=== PATIENT | male | born 1945 | race Hispanic/Latino ===

== ENCOUNTER 2016-10-30 06:11 | Inpatient (IN) | payer MEDICARE ==
[2016-10-30] MEDS ORDERED: ZOFRAN ONE ×2 (06:43→17:02)
[2016-10-30] MEDS ORDERED: NACL 0.9% 1000 ML 1,000 ML ONE ×4 (06:43→19:35)
[2016-10-30 06:53] LABS: Basophils % (Auto) 0.2 % (0.0-1.8); Eosinophils % (Auto) 5.7 % (0.0-4.3); Hematocrit 36.8 % (35.5-45.6); Hemoglobin 13.1 gm/dl (11.8-15.2); Mean Corpuscular HGB Conc 36 % (32-34); Mean Corpuscular Hemoglobin 32 pg (28-32); Mean Corpuscular Volume 91 fl (84-94); Platelet Count 212 K/mm3 (140-440); Red Blood Count 4.04 M/mm3 (3.65-5.03); Red Cell Distribution Width 13.8 % (13.2-15.2); White Blood Count 6.3 K/mm3 (4.5-11.0)
[2016-10-30] MEDS ORDERED: ZOFRAN IV ONE (06:56)
[2016-10-30] MEDS ORDERED: NACL 0.9% 1000 ML 1,000 ML IV ONE (06:56)
[2016-10-30 07:09] LABS: Albumin 4.4 g/dL (3.9-5); Albumin/Globulin Ratio 1.9 %; Alkaline Phosphatase 73 units/L (35-129); Anion Gap 19 mmol/L; BUN/Creatinine Ratio 15.55; Blood Urea Nitrogen 14 mg/dL (9-20); Calcium 9.5 mg/dL (8.4-10.2); Carbon Dioxide 26 mmol/L (22-30); Chloride 103.2 mmol/L (98-107); Glucose 130 mg/dL (75-100); Lipase 57 units/L (13-60); Potassium 4.2 mmol/L (3.6-5.0); Sodium 144 mmol/L (137-145); Total Protein 6.7 g/dL (6.3-8.2)
[2016-10-30] MEDS ORDERED: MORPHINE IV ONE ×3 (07:18→15:32)
[2016-10-30] MEDS ORDERED: PEPCID IV ONE (07:21)
--- NOTE | 2016-10-30 07:25 | Emergency Department Report ---
ED Abdominal Pain HPI - General Chief Complaint: Abdominal Pain Stated Complaint: CP Time Seen by Provider: 10/30/16 07:18 Source: patient Mode of arrival: Ambulatory Limitations: No Limitations - History of Present Illness Initial Comments: 71-year-old male here with complaint of sudden onset of abdominal pain and nausea that started at approximately 4:30 AM this morning. Patient states he was asleep and then developed pain in the center of his upper abdomen. He's had similar symptoms in the past approximately 10 months ago and this was related to reflux. He states this feels different. He has no associated shortness of breath. He has had some nausea and he has vomited 1. He has no fevers or chills. He still has his gallbladder. He did have an an appendectomy in the past. MD Complaint: abdominal pain -: Sudden Location: epigastric Radiation: none Migration to: no migration Severity: mild Severity scale (0 -10): 8 Quality: cramping Improves With: nothing Worsens With: nothing Associated Symptoms: nausea, vomiting - Related Data Home Medications Medication Instructions Recorded Confirmed Last Taken LORazepam [Ativan] 1 mg PO TID PRN 08/06/16 10/30/16 10/30/16 Omeprazole 40 mg PO DAILY 08/06/16 10/30/16 10/29/16 Sertraline [Zoloft] 150 mg PO QDAY 08/06/16 10/30/16 10/29/16 Previous Rx's Medication Instructions Recorded Last Taken Type oxyCODONE /ACETAMINOPHEN [Percocet 1 tab PO Q6H PRN #20 tablet 08/07/16 Rx 5/325 mg] Allergies Allergy/AdvReac Type Severity Reaction Status Date / Time Sulfa (Sulfonamide AdvReac Headache Verified 08/06/16 02:18 Antibiotics) ED Review of Systems ROS: Stated complaint: CP Other details as noted in HPI Comment: All other systems reviewed and negative Constitutional: denies: chills, fever Eyes: denies: eye pain, eye discharge, vision change ENT: denies: ear pain, throat pain Respiratory: denies: cough, shortness of breath, wheezing Cardiovascular: denies: chest pain, palpitations Endocrine: no symptoms reported Gastrointestinal: abdominal pain, nausea, vomiting. denies: diarrhea Genitourinary: denies: urgency, dysuria Musculoskeletal: denies: back pain, joint swelling, arthralgia Skin: denies: rash, lesions Neurological: denies: headache, weakness, paresthesias Psychiatric: denies: anxiety, depression Hematological/Lymphatic: denies: easy bleeding, easy bruising ED Past Medical Hx - Past Medical History Previous Medical History?: Yes Hx Hypertension: No Hx Congestive Heart Failure: No Hx Diabetes: No Hx Psychiatric Treatment: Yes (Anxiety, Panic Attacks) Hx Asthma: Yes Hx COPD: No Additional medical history: GERD - Surgical History Past Surgical History?: Yes Hx Appendectomy: Yes Additional Surgical History: T&A. Hernia. Kidney Stones - Family History Family history: no significant - Social History Smoking Status: Never Smoker Substance Use Type: None - Medications Home Medications: Home Medications Medication Instructions Recorded Confirmed Last Taken Type LORazepam [Ativan] 1 mg PO TID PRN 08/06/16 10/30/16 10/30/16 History Omeprazole 40 mg PO DAILY 08/06/16 10/30/16 10/29/16 History Sertraline [Zoloft] 150 mg PO QDAY 08/06/16 10/30/16 10/29/16 History oxyCODONE /ACETAMINOPHEN [Percocet 1 tab PO Q6H PRN #20 tablet 08/07/1610/30/16 Rx 5/325 mg] ED Physical Exam - General Limitations: No Limitations General appearance: alert, in no apparent distress - Head Head exam: Present: atraumatic, normocephalic - Eye Eye exam: Present: normal appearance. Absent: scleral icterus, conjunctival injection - ENT ENT exam: Present: mucous membranes moist - Neck Neck exam: Present: normal inspection - Respiratory Respiratory exam: Present: normal lung sounds bilaterally. Absent: respiratory distress, wheezes, rales - Cardiovascular Cardiovascular Exam: Present: regular rate, normal rhythm, normal heart sounds. Absent: systolic murmur, diastolic murmur, rubs, gallop - GI/Abdominal GI/Abdominal exam: Present: soft, tenderness (mild epigastric discomfort), normal bowel sounds. Absent: guarding, rebound, rigid - Rectal Rectal exam: Present: deferred - Extremities Exam Extremities exam: Present: normal inspection - Back Exam Back exam: Present: normal inspection - Neurological Exam Neurological exam: Present: alert, oriented X3 - Psychiatric Psychiatric exam: Present: normal affect, normal mood - Skin Skin exam: Present: warm, dry, intact, normal color. Absent: rash ED Course Vital Signs 10/30/16 10/30/16 10/30/16 06:20 06:45 07:36 Temperature 97.9 F 98.5 F Pulse Rate 54 L 58 L Respiratory 18 16 16 Rate Blood Pressure 150/68 Blood Pressure 180/79 [Left] O2 Sat by Pulse 98 98 Oximetry 10/30/16 10/30/16 10/30/16 07:46 08:06 09:44 Temperature Pulse Rate 64 Respiratory 16 16 16 Rate Blood Pressure Blood Pressure 169/74 [Left] O2 Sat by Pulse 100 Oximetry ED Medical Decision Making - Lab Data Result diagrams: 10/30/16 06:33 10/30/16 06:33 Laboratory Results - last 24 hr 10/30/16 10/30/16 06:33 06:33 WBC 6.3 RBC 4.04 Hgb 13.1 Hct 36.8 MCV 91 MCH 32 MCHC 36 H RDW 13.8 Plt Count 212 Lymph % (Auto) 27.0 [place] % (Auto) 8.2 H Eos % (Auto) 5.7 H Baso % (Auto) 0.2 Lymph # 1.7 [place] # 0.5 Eos # 0.4 Baso # 0.0 Seg Neutrophils % 58.9 Seg Neutrophils # 3.7 Sodium 144 Potassium 4.2 Chloride 103.2 Carbon Dioxide 26 Anion Gap 19 BUN 14 Creatinine 0.9 Estimated GFR > 60 BUN/Creatinine Ratio 15.55 Glucose 130 H Calcium 9.5 Total Bilirubin 0.20 Alkaline Phosphatase 73 Troponin T < 0.010 Total Protein 6.7 Albumin 4.4 Albumin/Globulin Ratio 1.9 Lipase 57 - EKG Data 10/30/16 07:25 Sinus bradycardia rate of 56 normal axis normal intervals no ST-T wave changes - Medical Decision Making 71-year-old male here with complaint of abdominal pain. Pain started suddenly at around 4:30 AM this morning. He's had similar pain in the past though he believes this feels slightly different. Clinical exam he has some mild tenderness in his epigastrium but otherwise unremarkable exam. Plan to treat with IV morphine and IV antiemetics IV fluids. We'll rule out cardiac cause although I do not think this is likely cardiac. Plan ultrasound right upper quadrant. Ultrasound showed gallstones with trace pericholecystic fluid. On reassessment patient was not improved. Plan CT abdomen. CT abdomen shows essentially the same findings. Discussed case with surgeon delivery consultant who recommends admission to medicine with HIDA scan. Dr. Mcdonald will see the patient in consult. Portions of this chart were dictated with dictation software. There may be dictation errors contained within this note. Critical care attestation.: If time is entered above; I have spent that time in minutes in the direct care of this critically ill patient, excluding procedure time. ED Disposition Clinical Impression: Abdominal pain Disposition: [id number] OP ADMIT IP TO THIS HOSP Is pt being admited?: Yes Condition: Stable Referrals: PRIMARY CARE, [Primary Care Provider] - 3-5 Days
[2016-10-30 07:37] LABS: Alanine Aminotransferase < 5 units/L (7-56)
--- NOTE | 2016-10-30 08:40 | Ultrasound Report ---
ULTRASOUND ABDOMEN LIMITED INDICATION: Abdominal RUQ pain. COMPARISON: None similar. FINDINGS: Right upper quadrant sonography suggests slight diffuse hepatic echogenic coarsening with grossly preserved contours. No definite focal suspicious lesions or biliary dilatation, to the extent assessed. Right hepatic lobe approximately 18 cm in midclavicular length. Gallbladder approximately 9.3 cm in length and demonstrates few small echogenic shadowing gallstones towards the fundus, individually measuring to the order of 5 mm. Subtle pericholecystic lucency hinted on some images 32-41, questionable for minimal pericholecystic fluid or fatty sparing. Gallbladder wall thickness is 1.7 mm. Negative sonographic Cramer's sign. Common bile duct is 5.7 mm. No ascites. Imaged pancreas grossly within normal limits, though tail obscured due to bowel gas. Unremarkable IVC. Nonaneurysmal abdominal aorta. Nonhydronephrotic 10.4 x 4.1 x 5 cm right kidney with cortical thickness of 1 cm. CONCLUSION: Cholelithiasis with minimal nonspecific pericholecystic lucency questioned, as described in this patient with subtle fatty, mildly enlarged liver also possible, as described. Please correlate. I phoned the above results to Dr. Lorenzo in the ER, 8:30 AM, 10/30/2016. Thank you for the opportunity to participate in this patient's care.
[2016-10-30] MEDS ORDERED: NACL ONE (09:37)
--- NOTE | 2016-10-30 10:41 | Cat Scan Report ---
CT ABDOMEN AND PELVIS WITH CONTRAST INDICATION: Abdominal pain. COMPARISON: RUQ ultrasound from earlier today. FINDINGS: Abdomen and pelvis CT performed following intravenous administration of 100 cc of Omnipaque 300. LUNG BASES: Slight cardiomegaly. Bibasilar dependent atelectasis. Slight lingular scarring. Nonspecific distal esophageal wall prominence/thickening, not excluded for gastroesophageal reflux and/or hiatal hernia, amongst others. Right hemidiaphragm slightly elevated. ABDOMEN: Subtle diffuse fatty hepatic infiltration suspected visually. Right hepatic lobe approximately 19 cm in mid clavicular length. CBD approximately 5 mm at the jose luis hepatis. No radiopaque gallstones identified on CT. Minimal fluid near the gallbladder fundus questioned as on axial images 90-100, series 2. No significant pericholecystic fat stranding however. Pancreas, adrenals, nonaneurysmal abdominal aorta, IVC and kidneys within normal limits. Ingested debris within the stomach. Pylorus suboptimally distended with nonspecific exaggerated wall thickness, axial images 95-117. Remainder nonopacified GI tract nonobstructive. Usual colonic stool. No ascites or size significant adenopathy. PELVIS: Few distal descending colon and proximal sigmoid diverticuli without acute complication. Prominent prostate may be age-appropriate, slightly indenting the bladder base and may also be correlated for clinically and with PSA. Small prostatic calcifications. No free fluid or significant adenopathy. Prior right inguinal hernia repair. Small, approximately 2 cm fat containing left inguinal hernia. Multilevel imaged spinal degenerative changes as spurring, lower thoracic spine Schmorl's nodes, lower lumbar facet arthropathy and demineralized bones. CONCLUSION: 1. Sonographically identified gallstones not visible on CT. Otherwise similar appearance of subtle fatty prominent/slightly enlarged liver and questionable minimal pericholecystic fluid, as described. HIDA scan may help evaluate gallbladder function, if so warranted. 2. Various other findings, including distal esophageal prominence, exaggerated pyloric wall prominence/thickening, diverticulosis, fat-containing left inguinal hernia and prior right inguinal hernia repair, amongst others, as above. Thank you for the opportunity to participate in this patient's care.
--- NOTE | 2016-10-30 10:47 | Admit Criteria Form ---
Admission Criteria Documentation: ABDOMINAL PAIN Clinical Indications for Admission to Inpatient Care ( moapa/check or initial the applicable condition/criteria): Admission is indicated for ANY ONE of the following (1)(2)(3)(4)(5)(6): [ ]I. Surgery needed that cannot be performed on ambulatory basis [ ]II. Peritoneal signs present (eg, rebound tenderness, rigidity) [ ]III. Evaluation requires patient to not eat or drink for extended period ( eg, more than 24 hours). [x]IV. Inpatient admission required[B] rather than observation care (see Abdominal Pain: Observation Care guideline as appropriate) because of ANY ONE of the following(7)(8)(9): [ ] a) Hemodynamic instability [x]b) Severe pain requiring acute inpatient management [ ]c) Identification of etiology or finding that requires inpatient care (eg, aortic dissection, free air,bowel ischemia)(10) [ ]d) Absent bowel sounds with complete ileus (11) [ ]e) Signs of intestinal obstruction[C] [ ]f) Suspected toxic megacolon [ ]g) Severe electrolyte abnormalities requiring inpatient care [ ]h) High fever or infection requiring inpatient admission as indicated by ANY ONE of the following (12)(13): [ ]i) Appropriate outpatient or observation care antimicrobial treatment unavailable, not effective, or not feasible [ ]ii) Documented bacteremia [ ]iii) Temperature greater than 104.9 degrees F (40.5 degrees C) (oral) [ ]iv) Temperature greater than 103.1 degrees F (39.5 degrees C) ( oral) or less than 96.8 degrees F (36 degrees C) (rectal) that does not respond to all emergency treatment measures [ ]i) IV fluid required rather than oral rehydration to replace significant ongoing (eg, for greater than 24 hours) losses (greater than 3 L/m2 per day)(14)(15) [ ]j) Percutaneous or open drainage (eg, abscess, biliary tract) procedures [ ]k) Parenteral nutrition regimen that must be implemented on inpatient basis [ ]l) Other condition, treatment, or monitoring requiring inpatient admission Extended stay beyond goal length of stay may be needed for (1)(3)(4)(10)(16): [ ]a) Surgery (e.g., colectomy, revascularization procedure) [ ]b) Persistent abdominal pain with suspected intra-abdominal process [ ]c) Diagnosed condition requiring continued stay (e.g., pancreatitis, complicated diverticulitis) The original [facility] [employer] content created by [facility] has been revised. The portions of the content which have been revised are identified through the use of italic text or in bold, and [facility] has neither reviewed nor approved the modified material.All other unmodified content is copyright [facility]. Please see references footnoted in the original [facility] edition 2017
--- NOTE | 2016-10-30 11:03 | History and Physical Report ---
History of Present Illness Date of examination: 10/30/16 Date of admission: 10/30/2016 Chief complaint: Abdominal pain History of present illness: Patient is a [age]-year-old male with a past medical history of sleep apnea depression and GERD, presents to the hospital with sharp abdominal and epigastric pain that started at 4:00 this morning and woke him suddenly from sleep. He localizes the pain to his epigastric area and states that it does not radiates. The pain is constant, 8 out of 10 in severity. He recalls a past history of similar pain, back in July where is present in the right upper quadrant, however it did resolve and he was discharged. He states he had 1 episode of nonbilious/nonbloody emesis upon arrival to the emergency room. He denies fevers or chills. He did have an an appendectomy in the past. Past History Past Medical History: GERD, other (sleep apena ) Past Surgical History: appendectomy Social history: lives with family. denies: smoking, alcohol abuse Family history: CAD, hypertension Medications and Allergies Allergies Allergy/AdvReac Type Severity Reaction Status Date / Time Sulfa (Sulfonamide AdvReac Headache Verified 08/06/16 02:18 Antibiotics) Home Medications Medication Instructions Recorded Confirmed Last Taken Type LORazepam [Ativan] 1 mg PO TID PRN 08/06/16 10/30/16 10/30/16 History Omeprazole 40 mg PO DAILY 08/06/16 10/30/16 10/29/16 History Sertraline [Zoloft] 150 mg PO QDAY 08/06/16 10/30/16 10/29/16 History oxyCODONE /ACETAMINOPHEN [Percocet 1 tab PO Q6H PRN #20 tablet 08/07/1610/30/16 Rx 5/325 mg] Review of Systems Constitutional: no weight loss, no weight gain, no fever Ears, nose, mouth and throat: no ear discharge, no tinnitis, no decreased hearing, no nasal congestion Cardiovascular: no orthopnea, no palpitations, no rapid/irregular heart beat, no edema Respiratory: no cough with sputum, no excessive sputum, no hemoptysis, no shortness of breath Gastrointestinal: no vomiting, no diarrhea, no constipation, no change in bowel habits Genitourinary Male: no flank pain, no discharge, no urinary frequency Rectal: no pain, no incontinence, no bleeding Musculoskeletal: no neck stiffness, no neck pain, no shooting arm pain Integumentary: no rash, no pruritis, no redness, no sores, no wounds, no jaundice Neurological: no paralysis, no weakness, no parathesias, no numbness, no tingling Psychiatric: no anxiety, no memory loss, no change in sleep habits, no sleep disturbances Endocrine: no cold intolerance, no heat intolerance, no polyphagia, no excessive thirst Hematologic/Lymphatic: no easy bruising, no easy bleeding Allergic/Immunologic: no urticaria, no allergic rhinitis Exam - Constitutional Vitals: Temp Pulse Resp BP Pulse Ox 98.5 F 64 16 169/74 100 10/30/16 06:45 10/30/16 07:46 10/30/16 09:44 10/30/16 07:46 10/30/16 07:46 General appearance: Present: no acute distress - EENT Eyes: Present: PERRL ENT: hearing intact - Neck Neck: Present: supple - Respiratory Respiratory effort: normal Respiratory: bilateral: CTA - Cardiovascular Heart rate: 56 Rhythm: regular Heart Sounds: Present: S1 & S2 - Extremities Extremities: no ischemia Peripheral Pulses: within normal limits - Abdominal General gastrointestinal: Present: soft, non-tender Male genitourinary: Present: deferred - Rectal Rectal Exam: deferred - Integumentary Integumentary: Present: clear, warm, dry - Musculoskeletal Musculoskeletal: strength equal bilaterally - Psychiatric Psychiatric: appropriate mood/affect - Neurologic Neurologic: CNII-XII intact - Allied Health Allied health notes reviewed: nursing Results - Labs CBC & Chem 7: 10/30/16 06:33 10/30/16 06:33 Labs: Laboratory Last Values WBC 6.3 K/mm3 (4.5-11.0) 10/30/16 06:33 RBC 4.04 M/mm3 (3.65-5.03) 10/30/16 06:33 Hgb 13.1 gm/dl (11.8-15.2) 10/30/16 06:33 Hct 36.8 % (35.5-45.6) 10/30/16 06:33 MCV 91 fl (84-94) 10/30/16 06:33 MCH 32 pg (28-32) 10/30/16 06:33 MCHC 36 % (32-34) H 10/30/16 06:33 RDW 13.8 % (13.2-15.2) 10/30/16 06:33 Plt Count 212 K/mm3 (140-440) 10/30/16 06:33 Lymph % (Auto) 27.0 % (13.4-35.0) 10/30/16 06:33 [place] % (Auto) 8.2 % (0.0-7.3) H 10/30/16 06:33 Eos % (Auto) 5.7 % (0.0-4.3) H 10/30/16 06:33 Baso % (Auto) 0.2 % (0.0-1.8) 10/30/16 06:33 Lymph # 1.7 K/mm3 (1.2-5.4) 10/30/16 06:33 [place] # 0.5 K/mm3 (0.0-0.8) 10/30/16 06:33 Eos # 0.4 K/mm3 (0.0-0.4) 10/30/16 06:33 Baso # 0.0 K/mm3 (0.0-0.1) 10/30/16 06:33 Seg Neutrophils % 58.9 % (40.0-70.0) 10/30/16 06:33 Seg Neutrophils # 3.7 K/mm3 (1.8-7.7) 10/30/16 06:33 Sodium 144 mmol/L (137-145) 10/30/16 06:33 Potassium 4.2 mmol/L (3.6-5.0) 10/30/16 06:33 Chloride 103.2 mmol/L (98-107) 10/30/16 06:33 Carbon Dioxide 26 mmol/L (22-30) 10/30/16 06:33 Anion Gap 19 mmol/L 10/30/16 06:33 BUN 14 mg/dL (9-20) 10/30/16 06:33 Creatinine 0.9 mg/dL (0.8-1.5) 10/30/16 06:33 Estimated GFR > 60 ml/min 10/30/16 06:33 BUN/Creatinine Ratio 15.55 % 10/30/16 06:33 Glucose 130 mg/dL (75-100) H 10/30/16 06:33 Calcium 9.5 mg/dL (8.4-10.2) 10/30/16 06:33 Total Bilirubin 0.20 mg/dL (0.1-1.2) 10/30/16 06:33 AST < 5 units/L (5-40) L 10/30/16 06:33 ALT < 5 units/L (7-56) L 10/30/16 06:33 Alkaline Phosphatase 73 units/L (35-129) 10/30/16 06:33 Troponin T < 0.010 ng/mL (0.00-0.029) 10/30/16 09:24 Total Protein 6.7 g/dL (6.3-8.2) 10/30/16 06:33 Albumin 4.4 g/dL (3.9-5) 10/30/16 06:33 Albumin/Globulin Ratio 1.9 % 10/30/16 06:33 Lipase 57 units/L (13-60) 10/30/16 06:33 - Imaging and Cardiology CT scan - abdomen: image reviewed (Cholelithiasis with minimal nonspecific pericholecystic ) Assessment and Plan Assessment and plan: Acute Cholelithiasis Ct of the Abdomen/Pelvic revealed Cholelithiasis with minimal nonspecific pericholecystic Nothing by mouth Initiated empiric treatment on antibiotic IV Zosyn HIDA scan pending Surgery consulted Patient might go to surgery in the AM Supportive care GERD Started on IV protonix 40mg BID DVT prophylaxis Lovenox Advance Directives: Yes VTE prophylaxis?: Chemical Contraindication Mechanical VTE Prophylaxis: Treatment Not Indicated Plan of care discussed with patient/family: Yes
[2016-10-30] MEDS ORDERED: TYLENOL PO PRN (11:05)
[2016-10-30] MEDS ORDERED: DULCOLAX PR PRN (11:05)
--- NOTE | 2016-10-30 11:39 | Consultation ---
History of Present Illness Consult date: 10/30/16 Reason for consult: abdominal pain - History of present illness History of present illness: 71-year-old male with a history of sleep apnea, GERD, presents to the hospital with acute onset sharp epigastric pain that started at 4:00 this morning and woke him suddenly from sleep. He states the pain does not radiate and remains in the epigastric area. The pain is constant, an 8 out of 10 in severity. He has had pain in his abdomen before, most recently back in July where is present in the right upper quadrant, however it did resolve and he was discharged. He states he had 1 episode of nonbilious/nonbloody emesis upon arrival to the emergency room. He denies sick contacts. He states the pain is not associated with food. He denies chest pain, shortness of breath, fevers, chills, constipation/diarrhea. His last colonoscopy was 5 years ago and showed diverticulosis. He did have a upper endoscopy in which was normal. Past History Past Medical History: GERD, other (sleep apnea, anxiety) Past Surgical History: appendectomy, Other (right inguinal hernia repair, tonsillectomy) Social history: no significant social history. denies: smoking, alcohol abuse Family history: other (GERD, PUD, diverticulosis) Medications and Allergies Allergies Allergy/AdvReac Type Severity Reaction Status Date / Time Sulfa (Sulfonamide AdvReac Headache Verified 08/06/16 02:18 Antibiotics) Home Medications Medication Instructions Recorded Confirmed Last Taken Type LORazepam [Ativan] 1 mg PO TID PRN 08/06/16 10/30/16 10/30/16 History Omeprazole 40 mg PO DAILY 08/06/16 10/30/16 10/29/16 History Sertraline [Zoloft] 150 mg PO QDAY 08/06/16 10/30/16 10/29/16 History oxyCODONE /ACETAMINOPHEN [Percocet 1 tab PO Q6H PRN #20 tablet 08/07/1610/30/16 Rx 5/325 mg] Active Meds: Active Medications Acetaminophen (Tylenol) 650 mg PO Q4H PRN PRN Reason: Pain MILD(1-3)/Fever >100.5/SINGH Bisacodyl (Dulcolax) 10 mg AK QDAY PRN PRN Reason: Constipation unrelieved by MOM Dextrose/Sodium Chloride (D5ns) 1,000 mls @ 75 mls/hr IV DIRECT YANET Piperacillin Sod/Tazobactam Sod (Zosyn/Ns 3.375gm/50ml) 3.375 gm in 50 mls @ 100 mls/hr IV Q8HR YANET PRN Reason: Protocol Miscellaneous Medication (Omeprazole [Omeprazole]) 40 mg PO DAILY YANET Pantoprazole Sodium (Protonix) 40 mg IV DAILY YANET Sertraline HCl (Zoloft) 150 mg PO QDAY YANET Review of Systems All systems: negative (see H&P) Exam Vital Signs Temp Pulse Resp BP Pulse Ox 97.9 F 54 L 18 150/68 98 10/30/16 06:20 10/30/16 06:20 10/30/16 06:20 10/30/16 06:20 10/30/16 06:20 Narrative exam: General: Awake alert and oriented 3 in no apparent distress CV: S1, S2 positive Respiratory: No audible wheezes Abdomen: Soft, non-distended, positive tenderness to palpation in the right upper quadrant. No rebound, rigidity, guarding. Well-healed surgical scar in right lower quadrant. Extremities: No clubbing cyanosis or edema Results - Labs 10/30/16 06:33 10/30/16 06:33 Abnormal lab results 10/30/16 10/30/16 Range/Units 06:33 06:33 MCHC 36 H (32-34) % Mcnairy % (Auto) 8.2 H (0.0-7.3) % Eos % (Auto) 5.7 H (0.0-4.3) % Glucose 130 H (75-100) mg/dL AST < 5 L (5-40) units/L ALT < 5 L (7-56) units/L Diabetes panel 10/30/16 Range/Units 06:33 Sodium 144 (137-145) mmol/L Potassium 4.2 (3.6-5.0) mmol/L Chloride 103.2 (98-107) mmol/L Carbon Dioxide 26 (22-30) mmol/L BUN 14 (9-20) mg/dL Creatinine 0.9 (0.8-1.5) mg/dL Glucose 130 H (75-100) mg/dL Calcium 9.5 (8.4-10.2) mg/dL AST < 5 L (5-40) units/L ALT < 5 L (7-56) units/L Alkaline Phosphatase 73 (35-129) units/L Total Protein 6.7 (6.3-8.2) g/dL Albumin 4.4 (3.9-5) g/dL Calcium panel 10/30/16 Range/Units 06:33 Calcium 9.5 (8.4-10.2) mg/dL Albumin 4.4 (3.9-5) g/dL Pituitary panel 10/30/16 Range/Units 06:33 Sodium 144 (137-145) mmol/L Potassium 4.2 (3.6-5.0) mmol/L Chloride 103.2 (98-107) mmol/L Carbon Dioxide 26 (22-30) mmol/L BUN 14 (9-20) mg/dL Creatinine 0.9 (0.8-1.5) mg/dL Glucose 130 H (75-100) mg/dL Calcium 9.5 (8.4-10.2) mg/dL Adrenal panel 10/30/16 Range/Units 06:33 Sodium 144 (137-145) mmol/L Potassium 4.2 (3.6-5.0) mmol/L Chloride 103.2 (98-107) mmol/L Carbon Dioxide 26 (22-30) mmol/L BUN 14 (9-20) mg/dL Creatinine 0.9 (0.8-1.5) mg/dL Glucose 130 H (75-100) mg/dL Calcium 9.5 (8.4-10.2) mg/dL Total Bilirubin 0.20 (0.1-1.2) mg/dL AST < 5 L (5-40) units/L ALT < 5 L (7-56) units/L Alkaline Phosphatase 73 (35-129) units/L Total Protein 6.7 (6.3-8.2) g/dL Albumin 4.4 (3.9-5) g/dL - Imaging Chest x-ray: pending CT scan - abdomen: report reviewed, image reviewed CT scan - pelvis: report reviewed, image reviewed US - abdomen: report reviewed, image reviewed Assessment and Plan 71-year-old male with 1. abdominal pain, r/o symptomatic cholelithiasis 2. hx sleep apnea 3. hx GERD Plan: - Admit to hospitalist service - CT A/P and U/S abd reviewed - cholelithiasis without signs of cholecystitis. - keep NPO - continue IVF - pain control - HIDA scan pending - further recommendations pending HIDA results and clinical course - d/w Dr. Lorenzo in ER - d/w Patient who understands plan
[2016-10-30] MEDS ORDERED: D5NS 1,000 ML IV SCH (12:00)
--- NOTE | 2016-10-30 12:19 | XRay Report ---
PORTABLE CHEST: Apnea. An AP portable view of the chest demonstrates a normal cardiac contour considering the limits of this technique. The lungs are clear with no evidence of infiltrate, fluid or failure. IMPRESSION: Normal portable chest.
--- NOTE | 2016-10-30 14:21 | Nuclear Medicine Report ---
HIDA INDICATION: Abdominal pain, cholelithiasis. COMPARISON: Abdominal imaging from earlier today. FINDINGS: Dynamic right upper quadrant imaging performed in the anterior projection over 60 minutes following uneventful intravenous administration of 5 mCi of Technetium 99m Choletec. Prompt and homogenous hepatic radiotracer uptake with subsequent washout seen with bowel activity seen reliably at 30 minutes. However, no gallbladder visualized on imaging carried out to 2 hours, then terminated due to hepatic washout. Prominent/slightly enlarged liver. CONCLUSION: Gallbladder nonvisualization that may represent obstructed cystic duct or cholecystitis in an appropriate setting, amongst others. Please also correlate clinically. Thank you for the opportunity to participate in this patient's care.
[2016-10-30] MEDS ORDERED: MARCAINE-EPI/PF 0.5%-1:200,000 INFILTRATI ONE (15:57)
[2016-10-30] MEDS ORDERED: XYLOCAINE 1% 20 mL ONE (15:57)
[2016-10-30] MEDS ORDERED: ZEMURON IV ONE (15:58)
[2016-10-30] MEDS ORDERED: DILAUDID ONE (15:59)
[2016-10-30] MEDS ORDERED: XYLOCAINE MPF 2% ONE (15:59)
[2016-10-30] MEDS ORDERED: DIPRIVAN 10 MG/ML IV ONE (15:59)
--- NOTE | 2016-10-30 16:28 | Anesthesia Consultation ---
Anesthesia Consult and Med Hx - Airway Anesthetic Teeth Evaluation: Good, Crowns (one crown back left lower (19) loose) - Pulmonary Exam CTA: Yes - Cardiac Exam Cardiac Exam: RRR - Pre-Operative Health Status ASA Pre-Surgery Classification: ASA2 Proposed Anesthetic Plan: General (no previous anesthesia problems;has had appy , tonsillectiomy,right iguinal hernia repair, and kidney stones) - Pulmonary Hx Asthma: Yes COPD: No Hx Pneumonia: No - Cardiovascular System Hx Hypertension: Yes - Central Nervous System Hx Psychiatric Problems: Yes (panic attacks, anxiety) - Gastrointestinal Hx Gastroesophageal Reflux Disease: Yes - Endocrine Hx End Stage Renal Disease: No
--- NOTE | 2016-10-30 16:29 | Anesthesia Day of Surgery ---
Anesthesia Day of Surgery - Day of Surgery Patient Examined: Yes Patient H&P Reviewed: Yes Patient is NPO: Yes (spme water early this AM - vomiting early today)
[2016-10-30] MEDS ORDERED: NACL 0.9% IR ONE ×2 (16:31)
[2016-10-30] MEDS ORDERED: XYLOCAINE 1% 20 mL INFILTRATI ONE ×2 (16:31)
[2016-10-30] MEDS ORDERED: MARCAINE 0.5% INFILTRATI ONE ×2 (16:31)
[2016-10-30] MEDS ORDERED: QUELICIN ONE (16:53)
[2016-10-30] MEDS ORDERED: ROBINUL ONE ×2 (17:02→17:31)
[2016-10-30] MEDS ORDERED: NEO SYNEPHRINE/NS Syringe(OR USE) IV ONE (17:30)
[2016-10-30] MEDS ORDERED: NEOSTIGMINE ONE (17:31)
[2016-10-30] MEDS ORDERED: PERCOCET 5/325 PO PRN (18:01)
[2016-10-30] MEDS ORDERED: ZOFRAN IV PRN (18:03)
--- NOTE | 2016-10-30 18:05 | Post Operative Note ---
Pre-op diagnosis: acute cholecystitis Post-op diagnosis: same Findings: distended gallbladder with stones and adhesions to omentum Procedure: laparoscopic cholecystectomy Anesthesia: ARCADIO Surgeon: ARIS HITCHCOCK Estimated blood loss: minimal Pathology: list (gallbladder) Specimen disposition: to lab Condition: stable Disposition: PACU
--- NOTE | 2016-10-30 18:14 | Operative Report ---
Operative Report Operative Report: Date of service: 10/30/16 Preoperative diagnosis: acute cholecystitis Postoperative diagnosis: same as preop Procedure performed: Laparoscopic cholecystectomy Surgeon: Yue Mcdonald D.O Anesthesia: general endotracheal anesthesia Findings: distended, edematous gallbladder with bile and small stones, pericholecystic fluid Specimen: gallbladder EBL: 5cc Complications: none Patient disposition and condition: stable to PACU HPI an indication: The patient is a 71 y/o male who presented to the hospital with epigastric pain x1 day which woke him suddenly from sleep. His labs were within normal limits but abdominal ultrasound showed gallstones and HIDA scan was positive for cystic duct obstruction. Therefore, he was advised to undergo cholecystectomy. All risks and benefits were discussed with the patient and the patient was in agreement to proceed to cholecystectomy. Consent was signed and placed on chart. Procedure in detail: Patient was identified in the preoperative area and taken back to the operating room and placed on the operating room table in supine position. After anesthesia was induced the abdomen was prepped and draped in the usual sterile fashion. A timeout was performed. The abdomen was insufflated to 15 mmHg using a veress needle via a 5mm incision above the umbilicus. Once insufflated, the veress needle was removed and a 5 mm trocar was inserted through this incision using Visiport. The abdomen was then inspected and there was no underlying injury to any of the abdominal contents. An additional 12 mm subxiphoid port and 2, 5 mm ports in the right upper quadrant were placed all under direct visualization. Local anesthetic consisting of a 50/50 mixure 1% lidocaine and 0.25% marcaine with epi was infiltrated into the skin at each incision site. The gallbladder was then visualized and could not be grasped. It was therefore decompressed with a laparoscopic needle and 60cc syringe, with return of green bile. The gallbladder was then grasped and lifted cephalad and over the liver. It appeared to be thickened with adhesions to the omentum. The omental adhesions were taken down bluntly and with electocautery carefully. The cystic duct and artery were then meticulously dissected as well as the cystic plate. The critical view was obtained and the cystic artery and duct were identified as the only 2 structures entering the gallbladder. They were therefore clipped with 3 proximal and one distal on the cystic duct and 2 proximal and one distal on the cystic artery. These structures were then transected between the clips using endoshears. The gallbladder was then dissected off the liver bed using hook electrocautery. Hemostasis was achieved along the way. The gallbladder was then placed into an Endo Catch bag and removed from the abdomen via the 12 mm port. The liver bed and gallbladder fossa were then inspected and hemostasis carefully achieved. The clips were identified and intact. The abdomen was irrigated until the irrigant returned clear. The abdomen was then desufflated and all ports removed under direct visualization. The 12 mm port fascia was closed with a single interrupted 0 Vicryl stitch. The skin incisions were closed with 4-0 Monocryl subcuticular stitches and skin glue. At the end of the case all sponge, instrument, and sharp counts were correct 2. The patient was awoken from anesthesia and extubated. The patient was taken to PACU in stable condition.
[2016-10-30] MEDS: MORPHINE IV PRN ×2 (18:50→23:50)
[2016-10-30] MEDS ORDERED: MORPHINE ONE (18:52)
--- NOTE | 2016-10-30 20:18 | Post Anesthesia Evaluation ---
- Post Anesthesia Evaluation Patient Participated: Yes Airway Patent: Yes Stable Respiratory Function: Yes Temp > 96.8F: Yes Pain Manageable: Yes Adequeate Hydration: Yes Anesthesia Complications: No Block Receding Appropriately: Not Applicable
[2016-10-30] MEDS: HEPARIN SUB-Q SCH (23:00)
[2016-10-30] MEDS: ZOSYN/NS 3.375GM/50ML 3.375 GM/50 ML BAG IV SCH ×2 (23:52)
[2016-10-31] MEDS: MORPHINE IV PRN (04:30)
[2016-10-31] MEDS: HEPARIN SUB-Q SCH (06:00)
[2016-10-31] MEDS: ZOSYN/NS 3.375GM/50ML 3.375 GM/50 ML BAG IV SCH (06:01)
[2016-10-31 06:43] LABS: Basophils % (Auto) 0.2 % (0.0-1.8); Eosinophils % (Auto) 0.7 % (0.0-4.3); Hematocrit 35.9 % (35.5-45.6); Hemoglobin 12.2 gm/dl (11.8-15.2); Mean Corpuscular HGB Conc 34 % (32-34); Mean Corpuscular Hemoglobin 31 pg (28-32); Mean Corpuscular Volume 92 fl (84-94); Platelet Count 182 K/mm3 (140-440); Red Blood Count 3.89 M/mm3 (3.65-5.03); White Blood Count 8.5 K/mm3 (4.5-11.0)
[2016-10-31 06:57] LABS: Anion Gap 19 mmol/L; BUN/Creatinine Ratio 13.75; Blood Urea Nitrogen 11 mg/dL (9-20); Calcium 8.2 mg/dL (8.4-10.2); Carbon Dioxide 23 mmol/L (22-30); Chloride 103.7 mmol/L (98-107); Glucose 113 mg/dL (75-100); Potassium 3.7 mmol/L (3.6-5.0); Sodium 142 mmol/L (137-145)
[2016-10-31] MEDS ORDERED: PROTONIX IV SCH (10:00)
[2016-10-31] MEDS ORDERED: ZOLOFT PO SCH (10:00)
[2016-10-31] MEDS ORDERED: PEPCID IV SCH (10:00)
[2016-10-31] MEDS ORDERED: NON-FORMULARY (Omeprazole [Omeprazole] 40 MG) PO SCH (10:00)
--- NOTE | 2016-10-31 10:35 | Progress Note ---
Assessment and Plan 71 yo M with acute cholecystitis s/p laparoscopic cholecystectomy POD1 1. advance to regular diet 2. dc IVF 3. dc abx 4. ambulate ad jody 5. encouraged and educated patient on incentive spirometry - low grade temps likely secondary to atelectasis 6. DVT ppx 7. prn pain control with percocet 8. if patient tolerates a regular diet, he may be discharged home with f/u with Dr. Mcdonald in 2 weeks Subjective Date of service: 10/31/16 Narrative: Pt seen and examined at bedside. C/o soreness near incisions. This has been improving. He has been OOB and ambulating. Low grade temperatures overnight. No n/v. Tolerating clear liquids. Objective Vital Signs - 12hr 10/30/16 10/30/16 10/31/16 23:46 23:50 04:30 Temperature 99.3 F Pulse Rate 59 L Respiratory 18 17 17 Rate Blood Pressure 117/54 O2 Sat by Pulse 97 Oximetry 10/31/16 10/31/16 04:46 07:44 Temperature 99.6 F 99.2 F Pulse Rate 60 Respiratory 18 20 Rate Blood Pressure 124/57 118/53 O2 Sat by Pulse 98 Oximetry - General physical appearance Narrative Exam: Gen: AAOx3. NAD CV: S1, S2+ Resp: NO audible wheezes Abd: soft, ND, minimal ttp near incisions. Incisions c/d/i Ext: No c/c/e - Labs 10/31/16 05:03 10/31/16 05:03 Diabetes panel 10/31/16 Range/Units 05:03 Sodium 142 (137-145) mmol/L Potassium 3.7 (3.6-5.0) mmol/L Chloride 103.7 (98-107) mmol/L Carbon Dioxide 23 (22-30) mmol/L BUN 11 (9-20) mg/dL Creatinine 0.8 (0.8-1.5) mg/dL Glucose 113 H (75-100) mg/dL Calcium 8.2 L (8.4-10.2) mg/dL Calcium panel 10/31/16 Range/Units 05:03 Calcium 8.2 L (8.4-10.2) mg/dL Pituitary panel 10/31/16 Range/Units 05:03 Sodium 142 (137-145) mmol/L Potassium 3.7 (3.6-5.0) mmol/L Chloride 103.7 (98-107) mmol/L Carbon Dioxide 23 (22-30) mmol/L BUN 11 (9-20) mg/dL Creatinine 0.8 (0.8-1.5) mg/dL Glucose 113 H (75-100) mg/dL Calcium 8.2 L (8.4-10.2) mg/dL Adrenal panel 10/31/16 Range/Units 05:03 Sodium 142 (137-145) mmol/L Potassium 3.7 (3.6-5.0) mmol/L Chloride 103.7 (98-107) mmol/L Carbon Dioxide 23 (22-30) mmol/L BUN 11 (9-20) mg/dL Creatinine 0.8 (0.8-1.5) mg/dL Glucose 113 H (75-100) mg/dL Calcium 8.2 L (8.4-10.2) mg/dL
--- NOTE | 2016-10-31 10:46 | Discharge Summary ---
Providers - Providers Date of Admission: 10/30/16 11:05 Date of discharge: 10/31/16 Attending physician: PERLA ADAIR 71-year-old presents with acute cholecystitis status post laparoscopic cholecystectomy tolerating MPO well. Stable for discharge. Follow with surgery in 2 weeks. Primary care physician: DEVON SALVADOR MD Hospitalization Condition: Stable Pertinent studies: Patient HIDA scan cholelithiasis cholecystitis. He scan abdomen unremarkable. Percentile gallbladder showed cholelithiasis. Procedures: Laparoscopic cholecystectomy Hospital course: History of present acute cholecystitis abdominal pain patient presented status post surgery tolerated surgery well stable for discharge. Disposition: DC-01 TO HOME OR SELFCARE - Discharge Diagnoses (1) Abdominal pain Status: Acute Qualifiers: Abdominal location: A (2) Acute cholecystitis Status: Acute Core Measure Documentation - Palliative Care Palliative Care/ Comfort Measures: Not Applicable - Core Measures Any of the following diagnoses?: none Exam - Constitutional Vitals: Temp Pulse Resp BP Pulse Ox 99.2 F 60 20 118/53 98 10/31/16 07:44 10/31/16 04:46 10/31/16 07:44 10/31/16 07:44 10/31/16 04:46 General appearance: Present: no acute distress, well-nourished - EENT Eyes: Present: PERRL ENT: hearing intact, clear oral mucosa - Neck Neck: Present: supple, normal ROM - Respiratory Respiratory effort: normal Respiratory: bilateral: CTA - Cardiovascular Heart Sounds: Present: S1 & S2. Absent: rub, click - Extremities Extremities: pulses symmetrical, No edema Peripheral Pulses: within normal limits - Abdominal General gastrointestinal: Present: soft, non-tender, distended, normal bowel sounds, other (slightly distended minimal incisional pain.) Male genitourinary: Present: normal - Integumentary Integumentary: Present: clear, warm, dry - Musculoskeletal Musculoskeletal: gait normal, strength equal bilaterally - Psychiatric Psychiatric: appropriate mood/affect, intact judgment & insight - Neurologic Neurologic: CNII-XII intact, moves all extremities Plan Activity: up only with assistance, other (up with assistance for first 48 hours. ) Weight Bearing Status: Weight Bear as Tolerated Diet: low fat, low cholesterol Special Instructions: other (follow-up surgery in 2 weeks.) Follow up with: PRIMARY CARE, [Primary Care Provider] - 3-5 Days ARIS HITCHCOCK DO [Staff Physician] - 7 Days Prescriptions: oxyCODONE /ACETAMINOPHEN [Percocet 5/325 mg] 1 tab PO Q6H PRN #20 tablet PRN Reason: Pain, Moderate (4-6) oxyCODONE /ACETAMINOPHEN [Percocet 5/325 mg] 2 tab PO Q4H PRN #30 tablet PRN Reason: Pain, Moderate (4-6)
[2016-10-31 11:50] VITALS: BP 120/59
[2016-10-31] MEDS ORDERED: ZOSYN/NS 3.375GM/50ML 3.375 GM/50 ML BAG IV SCH (12:00)
== END 2016-10-31 14:05 | disposition home or self-care (01) | DRG 419 ==
LOC: ED 06:11 → 3A 11:05
PROVIDERS: ADMIT Hospitalist; ATTEND Hospitalist
PROC: 0FT44ZZ Resection of Gallbladder, Percutaneous Endoscopic Approach (ICD-10-PCS; principal; 2016-10-30)
DX: K80.01 Calculus of gallbladder with acute cholecystitis with obstruction (principal); F41.9 Anxiety disorder, unspecified; F41.0 Panic disorder [episodic paroxysmal anxiety]; J45.909 Unspecified asthma, uncomplicated; K21.9 Gastro-esophageal reflux disease without esophagitis; Z90.49 Acquired absence of other specified parts of digestive tract; Z79.899 Other long term (current) drug therapy; Z88.2 Allergy status to sulfonamides; Z82.49 Family history of ischemic heart disease and other diseases of the circulatory system; Z83.79 Family history of other diseases of the digestive system; Z87.442 Personal history of urinary calculi
CPT/HCPCS: 36415; 71010; 74177; 76705; 78226; 80048; 80053; 83690; 84484; 85025; 88304; 93005; 93010; 96374; 96375; A4217; A9537; C9113; J0330; J1170; J1644; J2270; J2405; J2543; J2704; J2710; J7030; J7042; Q9967

== ENCOUNTER 2017-08-30 14:49 | Outpatient (CLI) | payer MEDICARE ==
--- NOTE | 2017-08-31 07:25 | XRay Report ---
FINAL REPORT EXAM: XR HAND 3+V RT HISTORY: ARTHRITIS TECHNIQUE: Three views of the right hand were submitted. FINDINGS: There is severe joint space narrowing and marginal spurring involving multiple interphalangeal joints of the fingers and thumb. The metacarpophalangeal joints of fairly well maintained. In the wrist there is arthritic changes of the navicular-greater multangular joint. The soft tissues reveal swelling around the proximal interphalangeal joints of the index middle and 4th fingers. IMPRESSION: Extensive polyarticular arthritic changes particularly involving the interphalangeal joints and the wrist to lesser extent as described.
--- NOTE | 2017-08-31 07:27 | XRay Report ---
FINAL REPORT EXAM: XR HAND 3+V LT HISTORY: ARTHRITIS TECHNIQUE: Three views of the left hand were submitted. FINDINGS: There is severe narrowing of multiple interphalangeal joints of the fingers and thumb with marginal osteophytosis. The metacarpal phalangeal joints are well maintained. In the wrist there is narrowing of the greater multangular 1st metacarpal joint with marginal spurring. There is no evidence of fracture. The soft tissues reveal swelling around the proximal phalangeal joints of the index and middle fingers as well as the distal interphalangeal joints of both fingers. IMPRESSION: Extensive polyarticular arthritic changes involving multiple interphalangeal joints as well as the greater multangular 1st metacarpal joint in the wrist. Findings are compatible with osteoarthrosis.
== END 2017-08-30 14:50 | disposition home or self-care (01) ==
LOC: SPVIMAG 14:49
PROVIDERS: ATTEND Internal Medicine
DX: M13.842 Other specified arthritis, left hand (principal); M13.841 Other specified arthritis, right hand; M25.742 Osteophyte, left hand; K21.9 Gastro-esophageal reflux disease without esophagitis; F41.9 Anxiety disorder, unspecified; J45.909 Unspecified asthma, uncomplicated; I10 Essential (primary) hypertension

== ENCOUNTER 2019-11-25 00:45 | Emergency (ER) | payer MEDICARE ==
[2019-11-25 03:04] LABS: Basophils % (Auto) 0.1 % (0.0-1.8); Eosinophils % (Auto) 0.7 % (0.0-4.3); Hematocrit 36.7 % (35.5-45.6); Hemoglobin 12.5 gm/dl (11.8-15.2); Lymphocytes # (Auto) 0.7 K/mm3 (1.2-5.4); Lymphocytes % (Auto) 10.4 % (13.4-35.0); Mean Corpuscular HGB Conc 34 % (32-34); Mean Corpuscular Volume 93 fl (84-94); Monocytes # (Auto) 0.3 K/mm3 (0.0-0.8); Platelet Count 202 K/mm3 (140-440); Red Blood Count 3.94 M/mm3 (3.65-5.03); Red Cell Distribution Width 14.2 % (13.2-15.2)
[2019-11-25 03:12] LABS: Bilirubin,Urine NEG (Negative); Blood,Urine SM (Negative); Color,Urine Yellow (Yellow); Mucus,Urine FEW /HPF; Protein,Urine <15 mg/dL mg/dL (Negative); Urobilinogen,Urine < 2.0 mg/dL (<2.0); WBC,Urine < 1.0 /HPF (0.0-6.0)
[2019-11-25 03:12] LABS: Calcium 9.5 mg/dL (8.4-10.2)
[2019-11-25] MEDS ORDERED: SODIUM CHLORIDE 0.9% 1000 ML 1,000 ML IV ONE (06:20)
[2019-11-25] MEDS ORDERED: ONDANSETRON 4 MG/2 ML INJ IV ONE (06:20)
[2019-11-25] MEDS ORDERED: MORPHINE 4 MG/1 ML INJ IV ONE (06:21)
[2019-11-25 07:52] VITALS: BP 189/80
--- NOTE | 2019-11-25 07:53 | Emergency Department Report ---
ED Abdominal Pain HPI - General Chief Complaint: Abdominal Pain Stated Complaint: LEFT FLANK PAIN Time Seen by Provider: 11/25/19 06:18 Source: patient Mode of arrival: Ambulatory Limitations: No Limitations - History of Present Illness Initial Comments: 74-year-old male with a past medical history of kidney stones, hypertension, asthma, GERD, previous appendectomy and cholecystectomy presents to the hospital planing of sudden onset severe left flank pain that started 2 hours prior to arrival. At time of my evaluation his pain has completely resolved. Patient had nausea with one episode of vomiting. He is recently started on Cipro 2 days ago for diagnosis of UTI made by his PMD. Patient is having urinary frequency at that time. For the last several years patient has had intermittent urinary frequency and decreased urinary stream but diagnosis of BPH or prostate cancer. He denies hematuria patient has had kidney stones in the past that passed spontaneously and did not require surgery. PMD: Dr. Farias Severity scale (0 -10): 9 - Related Data Home Medications Medication Instructions Recorded Confirmed Last Taken LORazepam [Ativan] 1 mg PO TID PRN 08/06/16 10/30/16 10/30/16 Omeprazole 40 mg PO DAILY 08/06/16 10/30/16 10/29/16 Sertraline [Zoloft] 150 mg PO QDAY 08/06/16 10/30/16 10/29/16 Previous Rx's Medication Instructions Recorded Last Taken Type oxyCODONE /ACETAMINOPHEN [Percocet 1 tab PO Q6H PRN #20 tablet 10/31/16 Unknown Rx 5/325 mg] oxyCODONE /ACETAMINOPHEN [Percocet 2 tab PO Q4H PRN #30 tablet 10/31/16 Unknown Rx 5/325 mg] Ondansetron [Zofran Odt] 4 mg PO Q8HR PRN #20 tab.rapdis 11/25/19 Unknown Rx Tamsulosin [Flomax] 0.4 mg PO QDAY #10 cap 11/25/19 Unknown Rx oxyCODONE /ACETAMINOPHEN [Percocet 1 tab PO Q4HR #20 tab 11/25/19 Unknown Rx 5/325] Allergies Allergy/AdvReac Type Severity Reaction Status Date / Time Sulfa (Sulfonamide AdvReac Headache Verified 08/06/16 02:18 Antibiotics) ED Review of Systems ROS: Stated complaint: LEFT FLANK PAIN Other details as noted in HPI Comment: All other systems reviewed and negative ED Past Medical Hx - Past Medical History Previous Medical History?: Yes Hx Hypertension: Yes Hx Congestive Heart Failure: No Hx Diabetes: No Hx Arthritis: Yes (Rheumatoid) Hx Kidney Stones: Yes Hx Psychiatric Treatment: Yes (Anxiety, Panic Attacks) Hx Asthma: Yes Hx COPD: No Additional medical history: GERD. Kidney Stones - Surgical History Past Surgical History?: Yes Hx Cholecystectomy: Yes Hx Appendectomy: Yes Additional Surgical History: T&A. Hernia - Social History Smoking Status: Never Smoker Substance Use Type: None - Medications Home Medications: Home Medications Medication Instructions Recorded Confirmed Last Taken Type LORazepam [Ativan] 1 mg PO TID PRN 08/06/16 10/30/16 10/30/16 History Omeprazole 40 mg PO DAILY 08/06/16 10/30/16 10/29/16 History Sertraline [Zoloft] 150 mg PO QDAY 08/06/16 10/30/16 10/29/16 History oxyCODONE /ACETAMINOPHEN [Percocet 1 tab PO Q6H PRN #20 tablet 10/31/16 Unknown Rx 5/325 mg] oxyCODONE /ACETAMINOPHEN [Percocet 2 tab PO Q4H PRN #30 tablet 10/31/16 Unknown Rx 5/325 mg] Ondansetron [Zofran Odt] 4 mg PO Q8HR PRN #20 tab.rapdis 11/25/19 Unknown Rx Tamsulosin [Flomax] 0.4 mg PO QDAY #10 cap 11/25/19 Unknown Rx oxyCODONE /ACETAMINOPHEN [Percocet 1 tab PO Q4HR #20 tab 11/25/19 Unknown Rx 5/325] ED Physical Exam - General Limitations: No Limitations - Other Other exam information: General: No acute distress Head: Atraumatic Eyes: normal appearance ENT: Moist mucous membranes Neck: Normal appearance, no midline tenderness Chest: Clear to auscultation bilaterally CV: Regular rate and rhythm Abdomen: Soft, normal bowel sounds, nontender, nondistended, no rebound or guarding Back: Normal inspection Extremity: Normal inspection, full range of motion Neuro: Alert O x 3, no facial asymmetry, speech clear, no gross motor sensory deficit Psych: Appropriate behavior Skin: No rash ED Course Vital Signs 11/25/19 11/25/19 11/25/19 01:28 05:00 05:05 Temperature 98.4 F 98 F Pulse Rate 58 L 60 Respiratory 18 18 18 Rate Blood Pressure 152/68 Blood Pressure 142/89 [Left] O2 Sat by Pulse 96 98 98 Oximetry 11/25/19 07:51 Temperature Pulse Rate 60 Respiratory 16 Rate Blood Pressure Blood Pressure 189/80 [Left] O2 Sat by Pulse 97 Oximetry ED Medical Decision Making - Lab Data Result diagrams: 11/25/19 02:22 11/25/19 02:22 Lab Results 11/25/19 11/25/19 11/25/19 Range/Units 02:22 02:22 Unknown WBC 6.8 (4.5-11.0) K/mm3 RBC 3.94 (3.65-5.03) M/mm3 Hgb 12.5 (11.8-15.2) gm/dl Hct 36.7 (35.5-45.6) % MCV 93 (84-94) fl MCH 32 (28-32) pg MCHC 34 (32-34) % RDW 14.2 (13.2-15.2) % Plt Count 202 (140-440) K/mm3 Lymph % (Auto) 10.4 L (13.4-35.0) % [place] % (Auto) 5.0 (0.0-7.3) % Eos % (Auto) 0.7 (0.0-4.3) % Baso % (Auto) 0.1 (0.0-1.8) % Lymph # (Auto) 0.7 L (1.2-5.4) K/mm3 [place] # (Auto) 0.3 (0.0-0.8) K/mm3 Eos # (Auto) 0.0 (0.0-0.4) K/mm3 Baso # (Auto) 0.0 (0.0-0.1) K/mm3 Seg Neutrophils % 83.8 H (40.0-70.0) % Seg Neutrophils # 5.7 (1.8-7.7) K/mm3 Sodium 142 (137-145) mmol/L Potassium 4.8 (3.6-5.0) mmol/L Chloride 101.0 (98-107) mmol/L Carbon Dioxide 25 (22-30) mmol/L Anion Gap 21 mmol/L BUN 25 H (9-20) mg/dL Creatinine 1.6 H (0.8-1.3) mg/dL Estimated GFR 42 ml/min BUN/Creatinine Ratio 16 % Glucose 165 H (75-100) mg/dL Calcium 9.5 (8.4-10.2) mg/dL Urine Color Yellow (Yellow) Urine Turbidity Clear (Clear) Urine pH 6.0 (5.0-7.0) Ur Specific [place] 1.018 (1.003-1.030) Urine Protein <15 mg/dl (Negative) mg/dL Urine Glucose (UA) Neg (Negative) mg/dL Urine Ketones Neg (Negative) mg/dL Urine Blood Sm (Negative) Urine Nitrite Neg (Negative) Urine Bilirubin Neg (Negative) Urine Urobilinogen < 2.0 (<2.0) mg/dL Ur Leukocyte Esterase Neg (Negative) Urine WBC (Auto) < 1.0 (0.0-6.0) /HPF Urine RBC (Auto) 8.0 (0.0-6.0) /HPF Urine Mucus Few /HPF - Radiology Data Radiology results: report reviewed CT ABDOMEN AND PELVIS WITHOUT CONTRAST INDICATION: Left flank pain. TECHNIQUE: Axial CT images were obtained through the abdomen and pelvis without IV contrast. All CT scans at this location are performed using CT dose reduction for ALARA by means of automated exposure contr ol. COMPARISON: None available. FINDINGS: LOWER CHEST: Chronic interstitial fibrosis/parenchymal scarring again noted in both lung bases, unchanged. LIVER: No significant abnormality. GALLBLADDER: Surgically absent BILE DUCTS: No significant abnormality. PANCREAS: No significant abnormality. SPLEEN: No significant abnormality. ADRENALS: No significant abnormality. RIGHT KIDNEY and URETER: 3 nonobstructing right intrarenal stones measuring up to 2 mm. No ureteral stone or hydronephrosis. LEFT KIDNEY and URETER: Obstructing 3 mm left UVJ stone image 154 with mild left hydro or hydronephrosis. 2 tiny uptake nonobstructing 1 mm left intrarenal stone. STOMACH and SMALL BOWEL: Small hiatal hernia again noted. No significant abnormality. COLON: Moderate sigmoid diverticulosis without CT evidence for diverticulitis. APPENDIX: No significant abnormality. PERITONEUM: No free fluid. No free air. No fluid collection. LYMPH NODES: No significant adenopathy. AORTA and ARTERIES: No significant abnormality. IVC and VEINS: No significant abnormality. URINARY BLADDER: Tiny 2 mm stone within the dependent portion of urinary bladder. REPRODUCTIVE ORGANS: Enlarged measuring 5 cm transversely. ADDITIONAL FINDINGS: None. SKELETAL SYSTEM: Moderate degenerative arthrosis both hips and mild degenerative changes of lumbar spine. IMPRESSION: 1. Obstructing 3 mm left UVJ stone with mild left hydronephrosis. 2. Bilateral nephrolithiasis. 3. Small bladder calculus or recently passed stone. 4. Moderate sigmoid diverticulosis without diverticulitis. - Medical Decision Making Patient symptoms had resolved at time of evaluation the patient did receive morphine, Zofran, and 1 L normal saline for renal insufficiency. Since October 2016 (BUN/creatinine 11/0.8). More recent creatinine not available for review. Patient's pain improved likely because of recently passed stone but patient still has a 3 mm stone at the left UVJ. Patient will be provided opioids, Flomax, Zofran, and NSAIDs will be avoided secondary to mild renal insufficiency. Urology outpatient follow-up provided. Patient instructed to continue his Cipro provided for diagnosis of UTI although urine is unremarkable here in the ED Patient also states he is on meloxicam and prednisone prescribed by his eligibility manager for arthritis. He was advised to stop meloxicam but he can continue the prednisone Critical Care Time: No Critical care attestation.: If time is entered above; I have spent that time in minutes in the direct care of this critically ill patient, excluding procedure time. ED Disposition Clinical Impression: Renal colic on left side, Ureteral calculus, left, Mild renal insufficiency Disposition: DC- TO HOME OR SELFCARE Is pt being admited?: No Does the pt Need Aspirin: No Condition: Stable Instructions: Kidney Stones (ED), Renal Colic (ED), Impaired Kidney Function (ED) Additional Instructions: Take the medicationS as prescribed. Today your kidney function is mildly abnormal. Stop your meloxicam and avoid other NSAIDs such as ibuprofen, Aleve, and Advil because these can worsen kidney function follow-up with your doctor or doctor/clinic provided. Is important that you see a urologist who can monitor and manage straight your kidney stones. Return if symptoms worsen as indicated by your discharge instructions. Take the copy of your CAT scan results and your lab results provided to your urologist and primary care doctor for follow-up Prescriptions: Tamsulosin [Flomax] 0.4 mg PO QDAY #10 cap oxyCODONE /ACETAMINOPHEN [Percocet 5/325] 1 tab PO Q4HR #20 tab Ondansetron [Zofran Odt] 4 mg PO Q8HR PRN #20 tab.rapdis PRN Reason: Nausea And Vomiting Referrals: ROBERTA DSOUZA MD [Staff Physician] - 3-5 Days (Urologist ) FRIEDA FARIAS JR, MD [Staff Physician] - 3-5 Days () Time of Disposition: 08:38
--- NOTE | 2019-11-25 08:23 | Cat Scan Report ---
CT ABDOMEN AND PELVIS WITHOUT CONTRAST INDICATION: Left flank pain. TECHNIQUE: Axial CT images were obtained through the abdomen and pelvis without IV contrast. All CT [facility] are performed using CT dose reduction for ALARA by means of automated exposure control. COMPARISON: None available. FINDINGS: LOWER CHEST: Chronic interstitial fibrosis/parenchymal scarring again noted in both lung bases, uncha nged. LIVER: No significant abnormality. GALLBLADDER: Surgically absent BILE DUCTS: No significant abnormality. PANCREAS: No significant abnormality. SPLEEN: No significant abnormality. ADRENALS: No significant abnormality. RIGHT KIDNEY and URETER: 3 nonobstructing right intrarenal stones measuring up to 2 mm. No ureteral s tone or hydronephrosis. LEFT KIDNEY and URETER: Obstructing 3 mm left UVJ stone image 154 with mild left hydro or hydronephro sis. 2 tiny uptake nonobstructing 1 mm left intrarenal stone. STOMACH and SMALL BOWEL: Small hiatal hernia again noted. No significant abnormality. COLON: Moderate sigmoid diverticulosis without CT evidence for diverticulitis. APPENDIX: No significant abnormality. PERITONEUM: No free fluid. No free air. No fluid collection. LYMPH NODES: No significant adenopathy. AORTA and ARTERIES: No significant abnormality. IVC and VEINS: No significant abnormality. URINARY BLADDER: Tiny 2 mm stone within the dependent portion of urinary bladder. REPRODUCTIVE ORGANS: Enlarged measuring 5 cm transversely. ADDITIONAL FINDINGS: None. SKELETAL SYSTEM: Moderate degenerative arthrosis both hips and mild degenerative changes of lumbar sp ine. IMPRESSION: 1. Obstructing 3 mm left UVJ stone with mild left hydronephrosis. 2. Bilateral nephrolithiasis. 3. Small bladder calculus or recently passed stone. 4. Moderate sigmoid diverticulosis without diverticulitis. Signer Name: Yoni Tripp MD Signed: 11/25/2019 8:19 AM Workstation Name: [id number]
== END 2019-11-25 08:52 | disposition home or self-care (01) ==
LOC: ED 00:45
DX: N21.1 Calculus in urethra (principal); N28.9 Disorder of kidney and ureter, unspecified; N23 Unspecified renal colic; I10 Essential (primary) hypertension; M19.91 Primary osteoarthritis, unspecified site; F41.9 Anxiety disorder, unspecified; J45.909 Unspecified asthma, uncomplicated; Z87.442 Personal history of urinary calculi; Z90.49 Acquired absence of other specified parts of digestive tract; Z98.890 Other specified postprocedural states; Z79.899 Other long term (current) drug therapy; Z88.2 Allergy status to sulfonamides
CPT/HCPCS: 36415; 74176; 80048; 81001; 85025; 96361; 96374; 96375; 99284; J2270; J2405; J7030

== ENCOUNTER 2020-08-08 04:36 | Emergency (ER) | payer MEDICARE ==
[2020-08-08] MEDS ORDERED: KETOROLAC 30 MG/1 ML INJ IM ONE (07:25)
--- NOTE | 2020-08-08 07:25 | Emergency Department Report ---
ED Back Pain/Injury HPI - General Chief Complaint: Back Pain/Injury Stated Complaint: RT SHOULDER PAIN Time Seen by Provider: 08/08/20 07:21 Source: patient Limitations: No Limitations - History of Present Illness Initial Comments: Chief complaint: Right upper back pain since Wednesday HPI: This is a 75-year-old male with history of rheumatoid arthritis hypertension asthma anxiety who presents with right upper back pain since Wednesday. PCP prescribed baclofen during walk-in appointment on Wednesday. No relief. Patient has spasm type pain just next to his shoulder blade right upper back. Radiates to his right arm. He denies chest pain or shortness of breath. Denies neck pain. Denies trauma. Moderate symptoms. MD Complaint: back pain -: Gradual, days(s) (4 days ago) Similar Symptoms Previously: No Place: home Severity: moderate Severity scale (0 -10): 5 Quality: other (Spasm achy) Consistency: constant Improves With: none Worsens With: none Associated Symptoms: denies other symptoms - Related Data Home Medications Medication Instructions Recorded Confirmed Last Taken LORazepam [Ativan] 1 mg PO TID PRN 08/06/16 10/30/16 10/30/16 Omeprazole 40 mg PO DAILY 08/06/16 10/30/16 10/29/16 Sertraline [Zoloft] 150 mg PO QDAY 08/06/16 10/30/16 10/29/16 Previous Rx's Medication Instructions Recorded Last Taken Type oxyCODONE /ACETAMINOPHEN [Percocet 1 tab PO Q6H PRN #20 tablet 10/31/16 Unknown Rx 5/325 mg] oxyCODONE /ACETAMINOPHEN [Percocet 2 tab PO Q4H PRN #30 tablet 10/31/16 Unknown Rx 5/325 mg] Ondansetron [Zofran Odt] 4 mg PO Q8HR PRN #20 tab.rapdis 11/25/19 Unknown Rx Tamsulosin [Flomax] 0.4 mg PO QDAY #10 cap 11/25/19 Unknown Rx oxyCODONE /ACETAMINOPHEN [Percocet 1 tab PO Q4HR #20 tab 11/25/19 Unknown Rx 5/325] oxyCODONE /ACETAMINOPHEN [Percocet 1 tab PO Q6HR PRN #10 tablet 08/08/20 Unknown Rx 5/325] Allergies Allergy/AdvReac Type Severity Reaction Status Date / Time Sulfa (Sulfonamide AdvReac Headache Verified 08/06/16 02:18 Antibiotics) ED Review of Systems ROS: Stated complaint: RT SHOULDER PAIN Other details as noted in HPI Comment: All other systems reviewed and negative Constitutional: denies: chills, fever, malaise Respiratory: denies: cough Cardiovascular: denies: chest pain ED Past Medical Hx - Past Medical History Previous Medical History?: Yes Hx Hypertension: Yes Hx Congestive Heart Failure: No Hx Diabetes: No Hx Arthritis: Yes (Rheumatoid) Hx Kidney Stones: Yes Hx Psychiatric Treatment: Yes (Anxiety, Panic Attacks) Hx Asthma: Yes Hx COPD: No Additional medical history: GERD. Kidney Stones - Surgical History Past Surgical History?: Yes Hx Cholecystectomy: Yes Hx Appendectomy: Yes Additional Surgical History: T&A. Hernia - Social History Smoking Status: Never Smoker Substance Use Type: None - Medications Home Medications: Home Medications Medication Instructions Recorded Confirmed Last Taken Type LORazepam [Ativan] 1 mg PO TID PRN 08/06/16 10/30/16 10/30/16 History Omeprazole 40 mg PO DAILY 08/06/16 10/30/16 10/29/16 History Sertraline [Zoloft] 150 mg PO QDAY 08/06/16 10/30/16 10/29/16 History oxyCODONE /ACETAMINOPHEN [Percocet 1 tab PO Q6H PRN #20 tablet 10/31/16 Unknown Rx 5/325 mg] oxyCODONE /ACETAMINOPHEN [Percocet 2 tab PO Q4H PRN #30 tablet 10/31/16 Unknown Rx 5/325 mg] Ondansetron [Zofran Odt] 4 mg PO Q8HR PRN #20 tab.rapdis 11/25/19 Unknown Rx Tamsulosin [Flomax] 0.4 mg PO QDAY #10 cap 11/25/19 Unknown Rx oxyCODONE /ACETAMINOPHEN [Percocet 1 tab PO Q4HR #20 tab 11/25/19 Unknown Rx 5/325] oxyCODONE /ACETAMINOPHEN [Percocet 1 tab PO Q6HR PRN #10 tablet 08/08/20 Unknown Rx 5/325] ED Physical Exam - General Limitations: No Limitations General appearance: alert, in no apparent distress, other (Well-appearing, laying semiupright with hands behind head appears comfortable) - Head Head exam: Present: atraumatic, normocephalic - Eye Eye exam: Present: normal appearance - ENT ENT exam: Present: mucous membranes moist - Neck Neck exam: Present: normal inspection - Respiratory Respiratory exam: Present: normal lung sounds bilaterally. Absent: respiratory distress, wheezes, rales, rhonchi - Cardiovascular Cardiovascular Exam: Present: regular rate, normal rhythm, normal heart sounds. Absent: systolic murmur, diastolic murmur, rubs, gallop - GI/Abdominal GI/Abdominal exam: Present: soft, normal bowel sounds. Absent: distended, tenderness, guarding, rebound - Rectal Rectal exam: Present: deferred - Extremities Exam Extremities exam: Present: normal inspection - Back Exam Back exam: Present: normal inspection, full ROM. Absent: tenderness, CVA tenderness (R), CVA tenderness (L), muscle spasm, paraspinal tenderness, vertebral tenderness, rash noted - Neurological Exam Neurological exam: Present: alert, oriented X3 - Psychiatric Psychiatric exam: Present: normal affect, normal mood - Skin Skin exam: Present: warm, dry, intact, normal color. Absent: rash ED Medical Decision Making - Medical Decision Making Musculoskeletal back pain: IM ketorolac given emergency department, p.o. Percocet prescription provided referred to orthopedic surgeon Critical care attestation.: If time is entered above; I have spent that time in minutes in the direct care of this critically ill patient, excluding procedure time. ED Disposition Clinical Impression: Musculoskeletal back pain, Rhomboid muscle pain Disposition: DC- TO HOME OR SELFCARE Is pt being admited?: No Does the pt Need Aspirin: No Condition: Stable Instructions: Acute Back Pain, Adult, Musculoskeletal Pain Prescriptions: oxyCODONE /ACETAMINOPHEN [Percocet 5/325] 1 tab PO Q6HR PRN #10 tablet PRN Reason: Pain Referrals: KARLEE DE JESUS MD [Staff Physician] - 3-5 Days
[2020-08-08 07:42] VITALS: BP 167/75
== END 2020-08-08 07:43 | disposition home or self-care (01) ==
LOC: ED 04:36
DX: M54.6 Pain in thoracic spine (principal); I10 Essential (primary) hypertension; M19.91 Primary osteoarthritis, unspecified site; F41.9 Anxiety disorder, unspecified; Z90.49 Acquired absence of other specified parts of digestive tract; Z98.890 Other specified postprocedural states; Z79.899 Other long term (current) drug therapy; Z88.2 Allergy status to sulfonamides
CPT/HCPCS: 96372; 99282; J1885